=== PATIENT | male | born 1950 | race Caucasian/White ===

== ENCOUNTER 2018-03-17 09:52 | Inpatient (IN) | payer OTHER, MEDICARE ==
[~2018-03-17] VITALS: Ht 170.2 cm; Wt 105.7 kg
[~2018-03-17 09:52] MED LIST: GLYCOPYRROLATE 0.2 MG/ML VIAL IJ ONE; LR 1,000 ML IV.SOLN IV ONE; MIDAZOLAM HCL 5 MG/5 ML VIAL IVP ONE; NEOSTIGMINE METHYLSULFATE 1 MG/ML, 10 ML VIAL IVP ONE; PROPOFOL 200MG/ 20ML VIAL (DIPRIVAN) IV ONE; ROCURONIUM BROMIDE 10 MG/ML (ZEMURON) IV ONE; SEVOFLURANE 15 MIN GAS INH ONE; fentaNYL CITRATE/PF 100 MCG/2 ML AMP IVP ONE
[2018-03-17 10:00] VITALS: BP_SYST 116
[2018-03-17] MEDS ORDERED: KETOROLAC TROMETHAMINE 30 MG VIAL IVP ONE (11:00)
[2018-03-17] MEDS ORDERED: ONDANSETRON HCL 4 MG/2 ML VIAL IVP ONE (11:00)
[2018-03-17] MEDS ORDERED: NACL 0.9% 1,000 ML IV ONE (11:00)
[2018-03-17 11:12] LABS: BASOPHILS # (AUTO) 0.1 K/uL (0.0-0.2); BASOPHILS % (AUTO) 0.7 % (0.0-2.0); EOSINOPHILS # (AUTO) 0.1 K/uL (0.0-0.4); EOSINOPHILS % (AUTO) 0.8 % (0.0-4.0); HEMOGLOBIN 16.1 g/dL (14.0-18.0); LYMPHOCYTES % (AUTO) 6.6 % (20.5-51.5); MEAN CORPUSCULAR HEMOGLOBIN 30 pg (27-31); MEAN CORPUSCULAR HGB CONC 34 % (32-36); MEAN CORPUSCULAR VOLUME 88 fL (79.0-98.0); MONOCYTES # (AUTO) 0.7 K/uL (0.0-1.0); MONOCYTES % (AUTO) 4.4 % (1.7-9.3); NEUTROPHILS # (AUTO) 13.4 K/uL (1.8-7.7); NEUTROPHILS % (AUTO) 87.5 % (40.0-70.0); PLATELET COUNT (AUTO) 186 K/uL (130-430); RED BLOOD CELL COUNT(AUTO) 5.37 MIL/uL (4.2-6.2); RED CELL DISTRIBUTION WIDTH 13.1 % (9.0-15.0); WHITE BLOOD COUNT (AUTO) 15.3 K/uL (4.8-10.8)
[2018-03-17 11:23] LABS: CALCIUM 9.3 mg/dL (8.4-11.0); CREATININE 1.18 mg/dL (0.55-1.30); POTASSIUM 3.6 mmol/L (3.5-5.1)
[2018-03-17 11:27] LABS: INR 1.1 (0.80-1.20); PROTHROMBIN TIME 11.4 SECS (9.5-12.5)
[2018-03-17 11:36] LABS: ALBUMIN 3.5 g/dL (3.4-4.8); TOTAL BILIRUBIN 7.5 mg/dL (0.0-1.0)
[2018-03-17 12:42] LABS: BILIRUBIN,URINE 2+ (NEGATIVE); BLOOD, URINE NEGATIVE (NEGATIVE); CLARITY/URINE CLEAR (CLEAR); COLOR,URINE AMBER (YELLOW); GLUCOSE,URINE 3+ (NEGATIVE); KETONES,URINE TRACE (NEGATIVE); LEUKOCYTE ESTERASE ,URINE NEGATIVE (NEGATIVE); NITRITE, URINE NEGATIVE (NEGATIVE); PH,URINE 5.5 (5.0-8.0); PROTEIN URINE TRACE (NEGATIVE)
[2018-03-17 12:54] LABS: BACTERIA,URINE RARE /HPF (None Seen); RBC,URINE 0-3 /HPF (0-3); WBC,URINE 0-3 /HPF (0-3)
[2018-03-17 12:55] LABS: MUCUS,URINE 1+ /LPF (None Seen)
[2018-03-17] MEDS ORDERED: metroNIDAZOLE 500 mg/NS 100 ML IV ONE ×2 (14:15→22:51)
[2018-03-17 15:46] VITALS: BP_SYST 102
[2018-03-17] MEDS ORDERED: ASPI-1155 PO (16:10)
[2018-03-17] MEDS ORDERED: LIP10 PO (16:10)
[2018-03-17] MEDS ORDERED: MULT-1117 PO (16:10)
[2018-03-17] MEDS ORDERED: LACT1CAP69 PO (16:10)
[2018-03-17] MEDS ORDERED: OMEP-268 PO (16:10)
[2018-03-17] MEDS ORDERED: LISI1TAB9 PO (16:10)
[2018-03-17] MEDS ORDERED: ZOLP10TA6 PO (16:10)
[2018-03-17] MEDS ORDERED: OMEG-81 PO (16:10)
[2018-03-17] MEDS ORDERED: CANA100T PO (16:10)
[2018-03-17] MEDS ORDERED: GLUC-104 PO (16:10)
[2018-03-17] MEDS ORDERED: NEU300 PO (16:10)
[2018-03-17] MEDS ORDERED: INSU100I24 SQ (16:10)
[2018-03-17] MEDS ORDERED: ONDANSETRON HCL 4 MG/2 ML VIAL IVP PRN (18:45)
[2018-03-17] MEDS ORDERED: MORPHINE 2 MG/ML INJ. SYRINGE IVP PRN (18:45)
[2018-03-17 19:30] VITALS: BP_SYST 113
[2018-03-17] MEDS: MORPHINE 4 MG/ML INJ. SYRINGE IVP PRN (20:13)
[2018-03-17 20:22] LABS: BILIRUBIN,DIRECT 5.5 mg/dL (0.0-0.3)
[2018-03-17] MEDS ORDERED: LEVOFLOXACIN 250 MG/D5W 50 ML IV ONE (22:51)
[2018-03-17] MEDS: metroNIDAZOLE 500 mg/NS 100 ML IV SCH (23:04)
[2018-03-17] MEDS: LEVOFLOXACIN 250 MG/D5W 50 ML IV SCH (23:05)
[2018-03-17] MEDS: D5/0.45 NS 1,000 ML IV SCH (23:11)
[2018-03-18] MEDS ORDERED: ZOLPIDEM TARTRATE 5 MG TABLET ONE
[2018-03-18] MEDS: MORPHINE 4 MG/ML INJ. SYRINGE IVP PRN ×6 (00:01→22:39)
[2018-03-18 00:05] VITALS: BP_SYST 115
[2018-03-18] MEDS: D5/0.45 NS 1,000 ML IV SCH ×3 (01:41→23:16)
[2018-03-18] MEDS: metroNIDAZOLE 500 mg/NS 100 ML IV SCH ×3 (06:30→21:10)
[2018-03-18] MEDS ORDERED: metroNIDAZOLE 500 mg/NS 100 ML IV ONE (06:30)
[2018-03-18 08:14] LABS: BASOPHILS % (AUTO) 0.3 % (0.0-2.0); EOSINOPHILS # (AUTO) 0.1 K/uL (0.0-0.4); EOSINOPHILS % (AUTO) 1.3 % (0.0-4.0); HEMATOCRIT 42.9 % (36-54); HEMOGLOBIN 14.2 g/dL (14.0-18.0); LYMPHOCYTES # (AUTO) 0.5 K/uL (1.0-5.5); LYMPHOCYTES % (AUTO) 4.7 % (20.5-51.5); MEAN CORPUSCULAR HEMOGLOBIN 30 pg (27-31); MEAN CORPUSCULAR HGB CONC 33 % (32-36); MEAN CORPUSCULAR VOLUME 89 fL (79.0-98.0); MONOCYTES # (AUTO) 0.5 K/uL (0.0-1.0); MONOCYTES % (AUTO) 4.4 % (1.7-9.3); NEUTROPHILS # (AUTO) 9.3 K/uL (1.8-7.7); NEUTROPHILS % (AUTO) 89.3 % (40.0-70.0); PLATELET COUNT (AUTO) 178 K/uL (130-430); RED BLOOD CELL COUNT(AUTO) 4.82 MIL/uL (4.2-6.2); WHITE BLOOD COUNT (AUTO) 10.4 K/uL (4.8-10.8)
[2018-03-18] MEDS ORDERED: LORazepam 2 MG/ML VIAL IVP PRN (08:15)
[2018-03-18 08:44] VITALS: BP_SYST 138
[2018-03-18] MEDS: CANAGLIFLOZIN 100 MG TABLET PO SCH (09:00)
[2018-03-18] MEDS: HYDROCHLOROTHIAZIDE 12.5 MG CAPSULE (HCTZ) PO SCH (09:26)
[2018-03-18] MEDS: OMEGA-3/DHA/EPA/FISH OIL 1 GM CAPSULE PO SCH (09:27)
[2018-03-18] MEDS: LISINOPRIL 10 MG TABLET (PRINIVIL) PO SCH (09:27)
[2018-03-18] MEDS: LACTOBACILLUS RHAMNOSUS GG 1 CAP CAPSULE PO SCH ×2 (09:27→21:09)
[2018-03-18] MEDS: OMEPRAZOLE 20 MG CAPSULE.DR (PriLOSEC) PO SCH (09:27)
[2018-03-18] MEDS: MULTIVITAMINS TAB 1 TABLET PO SCH (09:27)
[2018-03-18] MEDS: ASPIRIN 81 MG TAB.CHEW PO SCH (09:27)
[2018-03-18] MEDS: GABAPENTIN 300 MG CAPSULE PO SCH ×3 (09:27→21:08)
[2018-03-18 12:12] LABS: CALCIUM 9.2 mg/dL (8.4-11.0); CREATININE 1.22 mg/dL (0.55-1.30); POTASSIUM 3.9 mmol/L (3.5-5.1); TOTAL BILIRUBIN 8.8 mg/dL (0.0-1.0)
[2018-03-18 12:13] VITALS: BP_SYST 123
[2018-03-18 12:13] LABS: ALBUMIN 2.9 g/dL (3.4-4.8)
[2018-03-18 16:46] VITALS: BP_SYST 108
[2018-03-18 19:05] VITALS: BP_SYST 117
[2018-03-18] MEDS ORDERED: NON-FORMULARY MEDICATION (Zolpidem Tartrate 10 MG) PO SCH (21:00)
[2018-03-18] MEDS: ZOLPIDEM TARTRATE 5 MG TABLET PO PRN ×2 (21:07)
[2018-03-18] MEDS: TRESIBA 200 UNIT/ML SUBCUT SCH (21:07)
[2018-03-18] MEDS: ATORVASTATIN 10 MG TABLET PO SCH (21:09)
[2018-03-18] MEDS: LEVOFLOXACIN 250 MG/D5W 50 ML IV SCH (21:10)
[2018-03-18 23:30] VITALS: BP_SYST 123
[2018-03-19] VITALS (11 sets, daily range): BP systolic 100–136
[2018-03-19] MEDS: MORPHINE 4 MG/ML INJ. SYRINGE IVP PRN ×3 (04:07→19:47)
[2018-03-19] MEDS: metroNIDAZOLE 500 mg/NS 100 ML IV SCH ×3 (05:40→21:26)
[2018-03-19 06:07] LABS: BASOPHILS % (AUTO) 0.5 % (0.0-2.0); EOSINOPHILS # (AUTO) 0.2 K/uL (0.0-0.4); EOSINOPHILS % (AUTO) 3.2 % (0.0-4.0); HEMOGLOBIN 13.8 g/dL (14.0-18.0); LYMPHOCYTES # (AUTO) 0.5 K/uL (1.0-5.5); LYMPHOCYTES % (AUTO) 8.1 % (20.5-51.5); MEAN CORPUSCULAR HEMOGLOBIN 30 pg (27-31); MEAN CORPUSCULAR HGB CONC 34 % (32-36); MEAN CORPUSCULAR VOLUME 88 fL (79.0-98.0); MONOCYTES # (AUTO) 0.5 K/uL (0.0-1.0); MONOCYTES % (AUTO) 7.5 % (1.7-9.3); NEUTROPHILS # (AUTO) 5.1 K/uL (1.8-7.7); NEUTROPHILS % (AUTO) 80.7 % (40.0-70.0); PLATELET COUNT (AUTO) 183 K/uL (130-430); RED BLOOD CELL COUNT(AUTO) 4.57 MIL/uL (4.2-6.2); RED CELL DISTRIBUTION WIDTH 13.4 % (9.0-15.0); WHITE BLOOD COUNT (AUTO) 6.3 K/uL (4.8-10.8)
[2018-03-19 06:09] LABS: ALBUMIN 2.6 g/dL (3.4-4.8); CALCIUM 8.9 mg/dL (8.4-11.0); CREATININE 1.06 mg/dL (0.55-1.30); POTASSIUM 3.5 mmol/L (3.5-5.1); TOTAL BILIRUBIN 7.7 mg/dL (0.0-1.0)
[2018-03-19 06:10] LABS: INR 1.1 (0.80-1.20); PROTHROMBIN TIME 11.6 SECS (9.5-12.5)
[2018-03-19] MEDS ORDERED: IOHEXOL 50 ML IV ONE (06:55)
[2018-03-19] MEDS ORDERED: ONDANSETRON HCL 4 MG/2 ML VIAL IVP PRN (07:45)
[2018-03-19] MEDS ORDERED: fentaNYL CITRATE/PF 100 MCG/2 ML AMP IVP PRN ×2 (07:45)
[2018-03-19 08:20] LABS: C-REACTIVE PROTEIN QUANT 18.7 mg/dL (0-0.5)
[2018-03-19] MEDS: OMEPRAZOLE 20 MG CAPSULE.DR (PriLOSEC) PO SCH (09:44)
[2018-03-19] MEDS: LACTOBACILLUS RHAMNOSUS GG 1 CAP CAPSULE PO SCH ×2 (09:44→21:09)
[2018-03-19] MEDS: HYDROCHLOROTHIAZIDE 12.5 MG CAPSULE (HCTZ) PO SCH (09:45)
[2018-03-19] MEDS: ASPIRIN 81 MG TAB.CHEW PO SCH (09:47)
[2018-03-19] MEDS: MULTIVITAMINS TAB 1 TABLET PO SCH (09:47)
[2018-03-19] MEDS: LISINOPRIL 10 MG TABLET (PRINIVIL) PO SCH (09:47)
[2018-03-19] MEDS: OMEGA-3/DHA/EPA/FISH OIL 1 GM CAPSULE PO SCH (09:47)
[2018-03-19] MEDS: GABAPENTIN 300 MG CAPSULE PO SCH ×3 (09:48→21:10)
[2018-03-19 10:06] LABS: ERYTHROCYTE SEDIMENTATION RATE 71 MM/HR (0-15)
[2018-03-19] MEDS: CANAGLIFLOZIN 100 MG TABLET PO SCH (10:20)
[2018-03-19] MEDS: D5/0.45 NS 1,000 ML IV SCH (17:57)
[2018-03-19] MEDS: ATORVASTATIN 10 MG TABLET PO SCH (21:10)
[2018-03-19] MEDS: ZOLPIDEM TARTRATE 5 MG TABLET PO PRN (21:11)
[2018-03-19] MEDS: TRESIBA 200 UNIT/ML SUBCUT SCH (21:16)
[2018-03-19] MEDS: LEVOFLOXACIN 250 MG/D5W 50 ML IV SCH (21:26)
[2018-03-20] MEDS: MORPHINE 4 MG/ML INJ. SYRINGE IVP PRN ×6 (01:52→22:33)
[2018-03-20] MEDS: D5/0.45 NS 1,000 ML IV SCH ×2 (03:15→14:04)
[2018-03-20] MEDS: metroNIDAZOLE 500 mg/NS 100 ML IV SCH ×3 (06:11→21:07)
[2018-03-20 07:55] LABS: ALBUMIN 2.6 g/dL (3.4-4.8); CALCIUM 9.1 mg/dL (8.4-11.0); CREATININE 1.31 mg/dL (0.55-1.30); POTASSIUM 3.6 mmol/L (3.5-5.1); TOTAL BILIRUBIN 6.5 mg/dL (0.0-1.0)
[2018-03-20 08:11] LABS: BASOPHILS % (AUTO) 0.5 % (0.0-2.0); EOSINOPHILS # (AUTO) 0.3 K/uL (0.0-0.4); EOSINOPHILS % (AUTO) 4.1 % (0.0-4.0); HEMATOCRIT 41.3 % (36-54); HEMOGLOBIN 13.8 g/dL (14.0-18.0); LYMPHOCYTES # (AUTO) 0.8 K/uL (1.0-5.5); LYMPHOCYTES % (AUTO) 12.2 % (20.5-51.5); MEAN CORPUSCULAR HEMOGLOBIN 29 pg (27-31); MEAN CORPUSCULAR HGB CONC 33 % (32-36); MEAN CORPUSCULAR VOLUME 87 fL (79.0-98.0); MONOCYTES # (AUTO) 0.7 K/uL (0.0-1.0); MONOCYTES % (AUTO) 10.8 % (1.7-9.3); NEUTROPHILS # (AUTO) 4.7 K/uL (1.8-7.7); NEUTROPHILS % (AUTO) 72.4 % (40.0-70.0); PLATELET COUNT (AUTO) 200 K/uL (130-430); RED BLOOD CELL COUNT(AUTO) 4.75 MIL/uL (4.2-6.2); WHITE BLOOD COUNT (AUTO) 6.5 K/uL (4.8-10.8)
[2018-03-20] MEDS: GABAPENTIN 300 MG CAPSULE PO SCH ×3 (09:27→21:07)
[2018-03-20] MEDS: OMEGA-3/DHA/EPA/FISH OIL 1 GM CAPSULE PO SCH (09:27)
[2018-03-20] MEDS: MULTIVITAMINS TAB 1 TABLET PO SCH (09:27)
[2018-03-20] MEDS: ASPIRIN 81 MG TAB.CHEW PO SCH (09:27)
[2018-03-20] MEDS: OMEPRAZOLE 20 MG CAPSULE.DR (PriLOSEC) PO SCH (09:27)
[2018-03-20] MEDS: LACTOBACILLUS RHAMNOSUS GG 1 CAP CAPSULE PO SCH ×2 (09:27→21:07)
[2018-03-20] MEDS: CANAGLIFLOZIN 100 MG TABLET PO SCH (09:30)
[2018-03-20] MEDS: HYDROCHLOROTHIAZIDE 12.5 MG CAPSULE (HCTZ) PO SCH (09:33)
[2018-03-20] MEDS: LISINOPRIL 10 MG TABLET (PRINIVIL) PO SCH (09:33)
[2018-03-20 09:55] VITALS: BP_SYST 104
[2018-03-20 11:27] VITALS: BP_SYST 121
[2018-03-20 15:28] VITALS: BP_SYST 117
[2018-03-20 19:50] VITALS: BP_SYST 119
[2018-03-20] MEDS: TRESIBA 200 UNIT/ML SUBCUT SCH (21:00)
[2018-03-20] MEDS: ZOLPIDEM TARTRATE 5 MG TABLET PO PRN (21:07)
[2018-03-20] MEDS: ATORVASTATIN 10 MG TABLET PO SCH (21:07)
[2018-03-20] MEDS: LEVOFLOXACIN 250 MG/D5W 50 ML IV SCH (22:27)
[2018-03-21 00:37] VITALS: BP_SYST 118
[2018-03-21] MEDS: MORPHINE 4 MG/ML INJ. SYRINGE IVP PRN ×2 (03:29→08:23)
[2018-03-21 03:30] VITALS: BP_SYST 120
[2018-03-21] MEDS: D5/0.45 NS 1,000 ML IV SCH ×2 (03:30→09:15)
[2018-03-21] MEDS: metroNIDAZOLE 500 mg/NS 100 ML IV SCH (05:58)
[2018-03-21 07:00] LABS: BASOPHILS % (AUTO) 0.4 % (0.0-2.0); EOSINOPHILS # (AUTO) 0.4 K/uL (0.0-0.4); EOSINOPHILS % (AUTO) 5.4 % (0.0-4.0); HEMATOCRIT 42.5 % (36-54); HEMOGLOBIN 14.5 g/dL (14.0-18.0); LYMPHOCYTES # (AUTO) 1.2 K/uL (1.0-5.5); LYMPHOCYTES % (AUTO) 16.1 % (20.5-51.5); MEAN CORPUSCULAR HEMOGLOBIN 30 pg (27-31); MEAN CORPUSCULAR HGB CONC 34 % (32-36); MEAN CORPUSCULAR VOLUME 87 fL (79.0-98.0); MONOCYTES # (AUTO) 0.8 K/uL (0.0-1.0); MONOCYTES % (AUTO) 10.8 % (1.7-9.3); NEUTROPHILS # (AUTO) 5.3 K/uL (1.8-7.7); NEUTROPHILS % (AUTO) 67.3 % (40.0-70.0); PLATELET COUNT (AUTO) 203 K/uL (130-430); RED BLOOD CELL COUNT(AUTO) 4.87 MIL/uL (4.2-6.2); WHITE BLOOD COUNT (AUTO) 7.7 K/uL (4.8-10.8)
[2018-03-21 07:37] LABS: ALBUMIN 2.5 g/dL (3.4-4.8); CREATININE 1.12 mg/dL (0.55-1.30); POTASSIUM 3.6 mmol/L (3.5-5.1)
[2018-03-21 07:47] LABS: TOTAL BILIRUBIN 5.2 mg/dL (0.0-1.0)
[2018-03-21 08:20] VITALS: BP_SYST 135
[2018-03-21] MEDS: HYDROCHLOROTHIAZIDE 12.5 MG CAPSULE (HCTZ) PO SCH (09:00)
[2018-03-21] MEDS: MULTIVITAMINS TAB 1 TABLET PO SCH (09:00)
[2018-03-21] MEDS: ASPIRIN 81 MG TAB.CHEW PO SCH (09:00)
[2018-03-21] MEDS: OMEPRAZOLE 20 MG CAPSULE.DR (PriLOSEC) PO SCH (09:00)
[2018-03-21] MEDS: OMEGA-3/DHA/EPA/FISH OIL 1 GM CAPSULE PO SCH (09:00)
[2018-03-21] MEDS: LISINOPRIL 10 MG TABLET (PRINIVIL) PO SCH (09:00)
[2018-03-21] MEDS: CANAGLIFLOZIN 100 MG TABLET PO SCH (09:00)
[2018-03-21] MEDS: LACTOBACILLUS RHAMNOSUS GG 1 CAP CAPSULE PO SCH (09:00)
[2018-03-21] MEDS: GABAPENTIN 300 MG CAPSULE PO SCH (09:00)
[2018-03-21 13:42] VITALS: BP_SYST 124
[2018-03-21 14:09] VITALS: BP_SYST 124
== END 2018-03-21 14:05 | disposition home or self-care (01) | DRG 381 ==
LOC: SED 09:52 → SMU 15:05
PROVIDERS: ADMIT Preventive Medicine Preventive Medicine/Occupational Environmental Medicine; ATTEND Preventive Medicine Preventive Medicine/Occupational Environmental Medicine
PROC: 0D798ZZ Dilation of Duodenum, Via Natural or Artificial Opening Endoscopic (ICD-10-PCS; principal; 2018-03-18)
PROC: 0FJB8ZZ Inspection of Hepatobiliary Duct, Via Natural or Artificial Opening Endoscopic (ICD-10-PCS; 2018-03-18)
DX: K31.5 Obstruction of duodenum (principal); E87.1 Hypo-osmolality and hyponatremia; K44.9 Diaphragmatic hernia without obstruction or gangrene; D64.9 Anemia, unspecified; E11.22 Type 2 diabetes mellitus with diabetic chronic kidney disease; E11.65 Type 2 diabetes mellitus with hyperglycemia; E66.9 Obesity, unspecified; E78.5 Hyperlipidemia, unspecified; I12.9 Hypertensive chronic kidney disease with stage 1 through stage 4 chronic kidney disease, or unspecified chronic kidney disease; D72.829 Elevated white blood cell count, unspecified; Z53.8 Procedure and treatment not carried out for other reasons; I25.10 Atherosclerotic heart disease of native coronary artery without angina pectoris; N18.9 Chronic kidney disease, unspecified; R31.9 Hematuria, unspecified; M54.30 Sciatica, unspecified side; Z68.36 Body mass index [BMI] 36.0-36.9, adult
CPT/HCPCS: 36415; 71045; 74330-TC; 76700-TC; 80053; 81000-TC; 82150-TC; 82248-TC; 83605; 83690-TC; 84484; 85025; 85610-TC; 85651-TC; 85730-TC; 86140; 87040-TC; 87081; 87086; 93005; 94760; 96361; 96365; 96375; 99285; C1769; J1885; J1956; J2250; J2270; J2405; J2704; J2710; J3010; J3490; J7030; J7120; Q9967